=== PATIENT | female | born 1985 | race Caucasian/White ===

== ENCOUNTER 2020-10-16 10:32 | Emergency (ER) | payer BC ==
[~2020-10-16] VITALS: Ht 160 cm; Wt 68.0 kg
[2020-10-16 10:50] VITALS: BP 104/70
--- NOTE | 2020-10-16 10:50 | PHYS DOC ---
Past Medical History Past Medical History: No Pertinent History Past Surgical History: No Surgical History Alcohol Use: None General Adult EDM: Chief Complaint: SHORTNESS OF BREATH HPI: HPI: Patient is a 34 year old female who presented to ER due to cough and trouble breathing. Patient has been sick since last Sunday, she was tested positive for COVID-19 infection since Sunday. Patient denies any abdominal pain, no nausea vomiting. Patient denies any history of asthma hypertension or diabetic. Patient is not a smoker. Patient is currently not on any medication. Review of Systems: Review of Systems: Constitutional: Denies fever or chills. [] Eyes: Denies change in visual acuity. [] HENT: Denies nasal congestion or sore throat. [] Respiratory: Positive for cough and shortness of breath. [] Cardiovascular: Denies chest pain or edema. [] GI: Denies abdominal pain, nausea, vomiting, bloody stools or diarrhea. [] : Denies dysuria. [] Musculoskeletal: Denies back pain or joint pain. [] Integument: Denies rash. [] Neurologic: Denies headache, focal weakness or sensory changes. [] Endocrine: Denies polyuria or polydipsia. [] Lymphatic: Denies swollen glands. [] Psychiatric: Denies depression or anxiety. [] Heart Score: C/O Chest Pain: Yes HEART Score for Chest Pain: HEART Score for Chest Pain Response (Comments) Value History Slighlty/Non-Suspicious 0 ECG Normal 0 Age < 45 0 Risk Factors No Risk Factors 0 Troponin < Normal Limit 0 Total 0 Risk Factors: Risk Factors: DM, Current or recent (<one month) smoker, HTN, HLP, family history of CAD, obesity. Risk Scores: Score 0 - 3: 2.5% MACE over next 6 weeks - Discharge Home Score 4 - 6: 20.3% MACE over next 6 weeks - Admit for Clinical Observation Score 7 - 10: 72.7% MACE over next 6 weeks - Early Invasive Strategies Physical Exam: PE: Constitutional: Well developed, well nourished, no acute distress, non-toxic appearance. [] HENT: Normocephalic, atraumatic, bilateral external ears normal, oropharynx moist, no oral exudates, nose normal. [] Eyes: PERRLA, EOMI, conjunctiva normal, no discharge. [] Neck: Normal range of motion, no tenderness, supple, no stridor. [] Cardiovascular: tachycardia, regular rhythm, no murmur [] Lungs & Thorax: Bilateral breath sounds clear to auscultation , tachypnia Abdomen: Bowel sounds normal, soft, no tenderness, no masses, no pulsatile masses. [] Skin: Warm, dry, no erythema, no rash. [] Back: No tenderness, no CVA tenderness. [] Extremities: No tenderness, no cyanosis, no clubbing, ROM intact, no edema. [] Neurologic: Alert and oriented X 3, normal motor function, normal sensory function, no focal deficits noted. [] Psychologic: Affect normal, judgement normal, mood normal. [] Current Patient Data: Labs: Laboratory Tests Test 10/16/20 11:15 10/16/20 13:40 10/16/20 13:45 White Blood Count 6.0 x10^3/uL Red Blood Count 4.21 x10^6/uL Hemoglobin 13.6 g/dL Hematocrit 38.6 % Mean Corpuscular Volume 92 fL Mean Corpuscular Hemoglobin 32 pg Mean Corpuscular Hemoglobin Concent 35 g/dL Red Cell Distribution Width 12.3 % Platelet Count 201 x10^3/uL Neutrophils (%) (Auto) 54 % Lymphocytes (%) (Auto) 35 % Monocytes (%) (Auto) 10 % Eosinophils (%) (Auto) 0 % Basophils (%) (Auto) 1 % Neutrophils # (Auto) 3.3 x10^3/uL Lymphocytes # (Auto) 2.1 x10^3/uL Monocytes # (Auto) 0.6 x10^3/uL Eosinophils # (Auto) 0.0 x10^3/uL Basophils # (Auto) 0.0 x10^3/uL Sodium Level 139 mmol/L Potassium Level 4.3 mmol/L Chloride Level 102 mmol/L Carbon Dioxide Level 28 mmol/L Anion Gap 9 Blood Urea Nitrogen 7 mg/dL Creatinine 1.1 mg/dL Estimated GFR (Cockcroft-Gault) 56.9 BUN/Creatinine Ratio 6 Glucose Level 88 mg/dL Lactic Acid Level 1.0 mmol/L Calcium Level 8.4 mg/dL Magnesium Level 2.2 mg/dL Total Bilirubin 0.6 mg/dL Aspartate Amino Transf (AST/SGOT) 26 U/L Alanine Aminotransferase (ALT/SGPT) 25 U/L Alkaline Phosphatase 71 U/L Troponin I Quantitative < 0.017 ng/mL Total Protein 7.1 g/dL Albumin 3.1 g/dL Albumin/Globulin Ratio 0.8 Urine Collection Type Void Urine Color Cherie Urine Clarity Clear Urine pH 6.0 Urine Specific [place] 1.025 Urine Protein 30 mg/dL Urine Glucose (UA) Negative mg/dL Urine Ketones (Stick) Trace mg/dL Urine Blood Negative Urine Nitrite Negative Urine Bilirubin Small Urine Urobilinogen Dipstick 1.0 mg/dL Urine Leukocyte Esterase Moderate Urine RBC 0 /HPF Urine WBC 1-4 /HPF Urine Squamous Epithelial Cells Many /LPF Urine Bacteria Many /HPF Urine Mucus Marked /LPF Bedside Urine HCG, Qualitative Hcg negative Current Medications Medications (Trade) Dose Ordered Sig/Yesi Route PRN Reason Start Time Stop Time Status Last Admin Dose Admin Sodium Chloride 1,000 ml @ 1,000 mls/hr 1X ONCE IV 10/16/20 11:15 10/16/20 12:14 DC 10/16/20 11:53 Morphine Sulfate (Morphine Sulfate) 4 mg 1X ONCE IV 10/16/20 11:15 10/16/20 11:25 DC 10/16/20 11:54 Ceftriaxone Sodium (Rocephin) 1 gm 1X ONCE IVP 10/16/20 11:15 10/16/20 11:25 DC 10/16/20 11:55 Dexamethasone Sodium Phosphate (Decadron) 6 mg 1X ONCE IVP 10/16/20 11:15 10/16/20 11:25 DC 10/16/20 11:54 Ondansetron HCl (Zofran) 4 mg 1X ONCE IVP 10/16/20 11:45 10/16/20 11:46 DC 10/16/20 11:53 Ondansetron HCl (Zofran) 4 mg STK-MED ONCE .ROUTE 10/16/20 11:41 10/16/20 11:41 DC Sodium Chloride 1,000 ml @ 1,000 mls/hr 1X ONCE IV 10/16/20 12:30 10/16/20 13:29 DC 10/16/20 13:54 Iohexol (Omnipaque 350 Mg/ml) 75 ml 1X ONCE IV 10/16/20 12:45 10/16/20 12:46 DC EKG: EKG: EKG was done at 1047, heart rate of 121 beats per minute, sinus tachycardia, no ST segment elevation. Normal axis Radiology/Procedures: Radiology/Procedures: [][facility] [address] [place] [address] IMAGING REPORT Signed PATIENT: ALTAF SYKES ACCOUNT: [id number] : 1985 LOCATION: ER AGE: 34 SEX: F EXAM STATUS: REG ER ORD. PHYSICIAN: ASHA BENAVIDES DO REASON: CHEST PAIN, SHORTNESS OF AIR, CURRENTLY HAS COVID-19 INFECTION PROCEDURE: CT ANGIOGRAPHY CHEST EXAM: CT chest with contrast - pulmonary embolus protocol CLINICAL HISTORY: CHEST PAIN, SHORTNESS OF AIR, CURRENTLY HAS COVID-19 INFECTION COMPARISON: None. TECHNIQUE: CT of the chest following the administration of intravenous contrast during the pulmonary arterial phase. Axial, coronal and sagittal reformatted images were generated including MIP images. ---PQRS compliance statement - One or more of the following individualized dose reduction techniques were utilized for this study: 1. Automated exposure control 2. Adjustment of the mA and/or kV according to patient size 3. Use of iterative reconstruction technique--- FINDINGS: CHEST: Diagnostic quality: Adequate. Pulmonary emboli: None seen Right heart strain: None Pulmonary arteries: Normal in caliber. Heart is not enlarged. No pericardial effusion. No pleural effusion or pneumothorax. No axillary lymphadenopathy. No mediastinal or hilar lymphadenopathy. Prominent mediastinal and hilar lymph nodes are likely reactive. Bilateral groundglass and solid parenchymal opacities are seen bilaterally predominantly peripherally likely consolidative process such as pneumonia Visualized Upper abdomen: Unremarkable Bones: No aggressive osseous lesion is seen. IMPRESSION: Multifocal parenchymal opacities bilaterally likely consolidative process such as pneumonia, possibly typical or atypical. No definite pulmonary embolus is identified. Electronically signed by: Demond Foreman MD (10/16/2020 2:19 PM) [facility] DICTATED and SIGNED BY: DEMOND FOREMAN MD DATE: 10/16/20 [id number] 0 Course & Med Decision Making: Course & Med Decision Making Pertinent Labs and Imaging studies reviewed. (See chart for details) Patient is a 34-year-old female who has been infected with COVID-19 for a week, patient presented to ER due to chest pain and trouble breathing. Patient EKG and cardiac enzymes came back normal so far. Patient CT scan did not show any evidence of blood clot disorder. Patient had multiple groundglass appearing infiltration on her chest x-ray and CT scan consistent with COVID-19 pneumonia. Patient oxygen saturation at 97% on room air. Patient states she feels much better would like to go home, she did not want to be admitted to hospital. P romelia will be discharged home with a prescription for doxycycline 100 mg twice a day for 10 days. Advised to return to ER if she has worsening trouble breathing. Patient is amenable to plan of care Delphine Disclaimer: Dragon Disclaimer: This electronic medical record was generated, in whole or in part, using a voice recognition dictation system. Departure Departure Impression: Primary Impression: Pneumonia due to COVID-19 virus Disposition: DC HOME SELF CARE/HOMELESS Condition: IMPROVED Patient Instructions: Pneumonia, Adult Additional Instructions: You have been tested for or diagnosed with COVID-19. It is an infection caused by a new type of coronavirus. COVID-19 will cause cold-like or mild flu symptoms in most. It can cause more severe symptoms like problems breathing in some. There is no treatment for COVID-19. The body will clear the infection over time. Self-care will help to ease discomfort. Steps to Take: Self-Care Rest as needed. Healthy habits may help you feel better. Steps include: Choose healthy foods including fruits and vegetables. Drink water throughout the day. Get plenty of sleep each night. If you smoke, try to quit. It may ease breathing. Avoid alcohol. Keep Others Healthy The virus can spread to others. Droplets are released every time you sneeze or cough. The droplets can get into the mouth, nose, or eyes of people near you and lead to infection. To lower the chances of spreading COVID-19 to others: Stay at home until your doctor has said it is safe to leave. If you tested positive this will mean staying isolated until both of the following are true: At least 7 days have passed since the start of illness. You are free of fever for at least 72 hours without the use of medicine. During this time: - Avoid public areas, events, or transportation. Do not return to work or school until your doctor has said it is safe to do so. - Call ahead if you need to go to a medical center. Let them know you may have COVID-19. It will help them guide you where to go. They may also ask you to wear a facemask when you come to the office. - If you call for emergency medical services, let them know you may have COVID- 19. While at home: - Try to avoid close contact with others. Stay about 6 feet away. - If possible, spend most of your time in a separate room from others. - Use a face mask if you will be in close contact with others such as sharing a room or vehicle. - Have someone wipe down common surfaces in the home. Use household joinery factory worker every day on areas like doorknobs, counters, or sinks. - Cough or sneeze into a tissue. Throw the tissue away right after use. If a tissue is not available, cough or sneeze into your elbow. - Wash your hands often. Wash them after sneezing or coughing. Use soap and water and wash for at least 20 seconds. Alcohol based hand fish cleaner machine tender can be used if soap and w ater is not available. - Do not prepare food for others. Avoid sharing personal items like forks, spoons, or toothbrushes. - Avoid close contact with pets while you are sick. There is no evidence of the virus passing to pets. This is a safety step until more is known about this virus. Isolation can be frustrating. Social interaction can help. Keep in touch with friends and family through phone and tech options. You can still interact with others in your home, just keep a safe distance of about 6 feet. Follow-up: Your doctors office will check in with you to see if there are any changes in your health. You may be asked to keep track of symptoms to share with them. They will also let you know when you are clear to be in public again. Problems to Look Out For: Contact your doctor if your recovery is not going as you expect. Get emergency care if you have problems such as: - Trouble breathing - Nonstop chest pain or pressure - Changes in awareness, confusion, or problems waking - Lips or face have bluish color - Worsening of symptoms If you think you have an emergency, call for emergency medical services right away. As taken from [employer] Take a baby aspirin a day Scripts Doxycycline Hyclate (DOXYCYCLINE HYCLATE) 100 Mg Capsule 1 CAP PO BID for 10 Days, #20 CAP Prov: ASHA BENAVIDES DO 10/16/20 ASHA BENAVIDES DO Oct 16, 2020 10:50
--- NOTE | 2020-10-16 11:05 | RAD ---
AP chest. HISTORY: Short of air, Covid-19 positive AP view was taken of the chest. There are hazy bilateral areas of infiltrate consistent with Covid-19 or atypical pneumonia. Heart is normal in size. There is no pleural effusion. IMPRESSION: 1. Mild bilateral areas of infiltrate. Electronically signed by: Cornelio Mcdaniel MD (10/16/2020 11:03 AM) [id number]
[2020-10-16] MEDS ORDERED: cefTRIAXone IV Push 1 GM VIAL. IVP ONE (11:15)
[2020-10-16] MEDS ORDERED: IV NORMAL SALINE 1000ML BAG 1,000 ML IV ONE ×2 (11:15→12:30)
[2020-10-16] MEDS ORDERED: MORPHINE SULFATE 4 MG/ML VIAL. IV ONE (11:15)
[2020-10-16] MEDS ORDERED: DEXAMETHASONE SOD PHOS 4 MG/ML VIAL IVP ONE (11:15)
[2020-10-16 11:33] LABS: BASO % 1 % (0-3); EOS % 0 % (0-3); HEMATOCRIT 38.6 % (36.0-47.0); HEMOGLOBIN 13.6 g/dL (12.0-15.5); LYMPH # 2.1 x10^3/uL (1.0-4.8); LYMPH % 35 % (24-48); MEAN CORPUSCULAR HEMOGLOBIN 32 pg (25-35); MEAN CORPUSCULAR HGB CONC 35 g/dL (31-37); MEAN CORPUSCULAR VOLUME 92 fL (79-100); MONO # 0.6 x10^3/uL (0.0-1.1); MONO % 10 % (0-9); NEUT # 3.3 x10^3/uL (1.8-7.7); NEUT % 54 % (31-73); PLATELET COUNT 201 x10^3/uL (140-400); RED BLOOD COUNT 4.21 x10^6/uL (3.50-5.40); RED CELL DISTRIBUTION WIDTH 12.3 % (11.5-14.5)
[2020-10-16] MEDS ORDERED: ONDANSETRON PF 4 MG/2 ML VIAL. ONE (11:41)
[2020-10-16 11:43] LABS: CALCIUM 8.4 mg/dL (8.5-10.1); CREATININE 1.1 mg/dL (0.6-1.0); GFR 56.9; POTASSIUM 4.3 mmol/L (3.5-5.1)
[2020-10-16] MEDS ORDERED: ONDANSETRON PF 4 MG/2 ML VIAL. IVP ONE (11:45)
[2020-10-16 11:49] LABS: ALBUMIN 3.1 g/dL (3.4-5.0); ALBUMIN/GLOBULIN RATIO 0.8 (1.0-1.7); MAGNESIUM 2.2 mg/dL (1.8-2.4); TOTAL BILIRUBIN 0.6 mg/dL (0.2-1.0); TOTAL PROTEIN 7.1 g/dL (6.4-8.2)
[2020-10-16] MEDS ORDERED: IOHEXOL 350 MG/ML 100 ML VIAL. IV ONE (12:45)
[2020-10-16 13:54] LABS: BILIRUBIN,URINE SMALL (NEG); CLARITY,URINE CLEAR; COLOR,URINE AMBER; NITRITE,URINE NEGATIVE (NEG); PROTEIN,URINE 30 mg/dL (NEG-TRACE)
[2020-10-16 13:59] LABS: BACTERIA,URINE MANY /HPF (0-FEW)
[2020-10-16 14:01] LABS: RBC,URINE 0 /HPF (0-2)
--- NOTE | 2020-10-16 14:22 | RAD ---
EXAM: CT chest with contrast - pulmonary embolus protocol CLINICAL HISTORY: CHEST PAIN, SHORTNESS OF AIR, CURRENTLY HAS COVID-19 INFECTION COMPARISON: None. TECHNIQUE: CT of the chest following the administration of intravenous contrast during the pulmonary arterial phase. Axial, coronal and sagittal reformatted images were generated including MIP images. ---PQRS compliance statement - One or more of the following individualized dose reduction techniques were utilized for this study: 1. Automated exposure control 2. Adjustment of the mA and/or kV according to patient size 3. Use of iterative reconstruction technique--- FINDINGS: CHEST: Diagnostic quality: Adequate. Pulmonary emboli: None seen Right heart strain: None Pulmonary arteries: Normal in caliber. Heart is not enlarged. No pericardial effusion. No pleural effusion or pneumothorax. No axillary lymphadenopathy. No mediastinal or hilar lymphadenopathy. Prominent mediastinal and hilar lymph nodes are likely reactive. Bilateral groundglass and solid parenchymal opacities are seen bilaterally predominantly peripherally likely consolidative process such as pneumonia Visualized Upper abdomen: Unremarkable Bones: No aggressive osseous lesion is seen. IMPRESSION: Multifocal parenchymal opacities bilaterally likely consolidative process such as pneumonia, possibly typical or atypical. No definite pulmonary embolus is identified. Electronically signed by: Demond Foreman MD (10/16/2020 2:19 PM) ML
[2020-10-16] MEDS ORDERED: DOXY100C2 PO (14:43)
--- NOTE | 2020-10-16 19:37 | EKG ---
[facility] [address] [place] [address] Test Date: 2020-10-16 Test Time: 10:47:10 Pat Name: ALTAF SYKES Department: Room: Gender: F [employer] Rec[employer]iter: : 1985 Requested By: ASHA BENAVIDES Order Number: [id number] Reading MD: Measurements Intervals [place] Rate: 121 P: -42 UT: 134 QRS: 46 QRSD: 72 T: 13 QT: 356 QTc: 509 Interpretive Statements SINUS TACHYCARDIA OTHERWISE NORMAL ECG RI6.01 No previous ECG available for comparison
== END 2020-10-16 15:58 | disposition home or self-care (01) ==
LOC: ER 10:32
DX: U07.1 COVID-19 (principal); J12.82 Pneumonia due to coronavirus disease 2019
CPT/HCPCS: 36415; 71045; 71275; 80053; 81001; 81025; 83605; 83735; 84484; 85025; 87040; 87086; 93005; 96361; 96374; 96375; 99285; J0696; J1100; J2270; J2405; J7030